=== PATIENT | male | born 1980 | race Caucasian/White ===

== ENCOUNTER → 2020-04-18 09:14 | Outpatient (CLI) | payer OTHER, SELFPAY ==
--- NOTE | 2020-04-18 09:17 | DI.US.S_ITS ---
PROCEDURE: US ABDOMEN COMPLETE INDICATIONS: RETIREMENT HEARTBURN MEDICATION TECHNIQUE: Real-time scanning was performed of the abdominal and retroperitoneal organs, with image documentation. COMPARISON: None. FINDINGS: Liver: The liver demonstrates normal size. The liver demonstrates generalized increased echogenicity. This decreases ultrasound sensitivity for detection of hepatic masses. Gallbladder: No findings of gallstones or sludge are seen. The gallbladder wall is not thickened, measuring 3 mm or less. A 4.6 mm, while can be seen posteriorly. No specific pericholecystic fluid is seen. The sonographic Kelly sign is negative. Biliary ducts: Intrahepatic bile ducts are non-dilated. Extrahepatic bile duct caliber measures 4 mm. Normal is 6-7 mm or less in diameter, or 10 mm or less post-cholecystectomy. Pancreas: Visualized portions of the pancreas are sonographically normal. Spleen: Spleen is normal in size and homogeneous in echotexture. Kidneys: Kidneys are normal in size and echotexture. Right kidney measures 9.8 cm long; left kidney measures 11.2 cm long. No hydronephrosis or nephrolithiasis. No solid masses. Aorta: Visualized aorta is normal in caliber at less than 3 cm. Iliacs: Proximal common iliac arteries are normal in caliber at less than 2.5 cm. IVC: Intrahepatic inferior vena cava is patent. Miscellaneous: No free abdominal fluid. IMPRESSION: No imaging explanation is found for this patient's presenting symptoms. The gallbladder demonstrates a normal sonographic appearance. No biliary dilatation is seen. 4.6 mm gallbladder wall polyp incidentally noted. Dictated by: Nick Ventura M.D. on 04/18/2020 at 9:22 Approved by: Nick Ventura M.D. on 04/18/2020 at 9:23
[2020-04-18 10:40] LABS: Add Manual Diff / Slide Review NO; Basophils Absolute Auto 0 /uL (0-100); Basophils Percent Auto 0.9 % (0-2); Eosinophils Absolute Auto 100 /uL (0-450); Eosinophils Percent Auto 2.9 % (2-4); Hematocrit 49.8 % (41-53); Hemoglobin 17.6 g/dL (13.5-17.5); Lymphocytes Absolute Auto 1000 /uL (1100-4500); Lymphocytes Percent Auto 21.8 % (25-40); Mean Corpuscular HGB Conc 35.4 % (30-36); Mean Corpuscular Volume 93.3 fL (80-100); Monocytes Absolute Auto 500 /uL (0-900); Monocytes Percent Auto 11.7 % (3-14); Neutrophils Absolute Auto 2800 /uL (1500-7000); Neutrophils Percent Auto 62.7 % (50-75); Platelet Count 201 X10^3/uL (150-400); Red Blood Cell Count 5.34 X10^6/uL (4.5-5.9); Red Cell Distribution Width 13.5 % (11.6-14.8); White Blood Cell Count 4.5 X10^3/uL (4.5-11.0)
[2020-04-18 11:23] LABS: Alanine Aminotransferase 47 IU/L (<50); Albumin 4.8 g/dL (3.5-5.0); Albumin Globulin Ratio 1.7 (1.0-2.8); Alkaline Phosphatase 46 U/L (38-126); Amylase 50 U/L (30-110); Aspartate Aminotransferase 46 IU/L (17-59); BUN Creatinine Ratio 13.5 (6-22); Blood Urea Nitrogen 14 mg/dL (9-20); Calcium 9.9 mg/dL (8.4-10.2); Carbon Dioxide 28 mmol/L (22-32); Chloride 101 mmol/L (98-107); Estimated Glomerular Filt Rate > 60.0 mL/min (>60); Globulin 2.8 g/dL (1.7-4.1); Glucose 93 mg/dL (70-100); HEMOLYSIS < 15 (0-50); Lipase 31 U/L (23-300); Potassium 4.6 mmol/L (3.4-5.1); Sodium 137 mmol/L (137-145); Total Protein 7.6 g/dL (6.3-8.2)
== END ==
PROVIDERS: Family Provider Family Medicine; PCP Family Medicine; Referring Provider Family Medicine; Visit Provider Family Medicine
DX: R12 Heartburn (principal); K82.4 Cholesterolosis of gallbladder; Z79.899 Other long term (current) drug therapy
CPT/HCPCS: 36415; 76700; 80053; 82150; 83013; 83690; 85025

== ENCOUNTER → 2020-09-15 13:16 | Outpatient (CLI) | payer OTHER, SELFPAY ==
--- NOTE | 2020-09-15 13:19 | DI.RAD.S_ITS ---
PROCEDURE: XR CERVICAL SPINE 2V OR 3V INDICATIONS: Neck pain TECHNIQUE: 3 view(s) of the cervical spine were acquired. COMPARISON: None. FINDINGS: Bones: No fractures or dislocations to the T1 level. The lateral masses of C1 appear intact on the odontoid view. No suspicious bony lesions. Note is made of a [id number] degree of degenerative disc height reduction at C5-6 without subluxation Soft tissues: No prevertebral soft tissue swelling. IMPRESSION: [id number] degenerative disc disease at C5-6, no trauma found, no subluxation present. Dictated by: Onesimo Rodarte M.D. on 09/15/2020 at 16:24 Approved by: Onesimo Rodarte M.D. on 09/15/2020 at 16:25
== END ==
PROVIDERS: Family Provider Family Medicine; PCP Family Medicine; Referring Provider Family Medicine; Visit Provider Family Medicine
DX: M54.2 Cervicalgia (principal)
CPT/HCPCS: 72040

== ENCOUNTER → 2022-03-01 16:57 | Outpatient (CLI) | payer OTHER, SELFPAY ==
[2022-03-01 17:55] LABS: Add Manual Diff / Slide Review NO; Basophils Absolute Auto 100 /uL (0-100); Basophils Percent Auto 0.9 % (0-2); Eosinophils Absolute Auto 200 /uL (0-450); Eosinophils Percent Auto 2.7 % (2-4); Hematocrit 50.6 % (41-53); Hemoglobin 17.7 g/dL (13.5-17.5); Lymphocytes Absolute Auto 1600 /uL (1100-4500); Mean Corpuscular Hemoglobin 32.3 PG (26-34); Mean Corpuscular Volume 92.1 fL (80-100); Monocytes Absolute Auto 800 /uL (0-900); Monocytes Percent Auto 11.5 % (3-14); Neutrophils Absolute Auto 4400 /uL (1500-7000); Neutrophils Percent Auto 62.9 % (50-75); Platelet Count 248 X10^3/uL (150-400); Red Blood Cell Count 5.49 X10^6/uL (4.5-5.9); Red Cell Distribution Width 13.8 % (11.6-14.8); White Blood Cell Count 7.1 X10^3/uL (4.5-11.0)
[2022-03-01 18:08] LABS: Alanine Aminotransferase 40 IU/L (<50); Albumin 4.9 g/dL (3.5-5.0); Albumin Globulin Ratio 1.8 (1.0-2.8); Alkaline Phosphatase 51 U/L (38-126); Aspartate Aminotransferase 38 IU/L (17-59); BUN Creatinine Ratio 13.2 (6-22); Bilirubin Total 0.4 mg/dL (0.2-1.3); Blood Urea Nitrogen 15 mg/dL (9-20); Calcium 8.9 mg/dL (8.4-10.2); Carbon Dioxide 25 mmol/L (22-32); Chloride 104 mmol/L (98-107); Estimated Glomerular Filt Rate > 60 mL/min (>60); Globulin 2.8 g/dL (1.7-4.1); Glucose 98 mg/dL (70-100); HEMOLYSIS < 15 (0-50); Potassium 3.9 mmol/L (3.4-5.1); Sodium 139 mmol/L (137-145); Total Protein 7.7 g/dL (6.3-8.2)
[2022-03-01 18:28] LABS: Ur Creatinine Normal (Normal); Ur Specific Gravity Normal (Normal); Urine Tetrahydrocannabinol Negative (Negative); Urine pH Normal (Normal)
[2022-03-01 18:29] LABS: UR Morphine/Opiate cutoff 300 Negative (Negative); Urine Amphetamines Positive (Negative); Urine Barbiturates Negative (Negative); Urine Benzodiazepines Negative (Negative); Urine Cocaine Negative (Negative); Urine MDMA Negative (Negative); Urine Methadone Negative (Negative); Urine Methamphetamines Negative (Negative); Urine Oxycodone Negative (Negative); Urine Phencyclidine Negative (Negative); Urine Tricyclic Antidepressant Negative (Negative)
[2022-03-01 18:41] LABS: TSH w/ Reflex to FT4 2.81 uIU/mL (0.47-4.68)
== END ==
PROVIDERS: Family Provider Family Medicine; PCP Internal Medicine; Referring Provider Internal Medicine; Visit Provider Internal Medicine
DX: F90.0 Attention-deficit hyperactivity disorder, predominantly inattentive type (principal); I10 Essential (primary) hypertension
CPT/HCPCS: 36415; 80053; 80305; 84443; 85025

== ENCOUNTER → 2023-06-07 11:28 | Outpatient (CLI) | payer BC, SELFPAY ==
[2023-06-07 13:19] LABS: Alanine Aminotransferase 84 IU/L (<50); Albumin 4.5 g/dL (3.5-5.0); Albumin Globulin Ratio 1.7 (1.0-2.8); Alkaline Phosphatase 43 U/L (38-126); Aspartate Aminotransferase 47 IU/L (17-59); BUN Creatinine Ratio 15.3 (6-22); Bilirubin Total 0.7 mg/dL (0.2-1.3); Blood Urea Nitrogen 15 mg/dL (9-20); Calcium 9.4 mg/dL (8.4-10.2); Carbon Dioxide 33 mmol/L (22-32); Chloride 98 mmol/L (98-107); Estimated Glomerular Filt Rate > 60 mL/min (>60); Globulin 2.7 g/dL (1.7-4.1); Glucose 91 mg/dL (70-100); HEMOLYSIS < 15 (0-50); Potassium 4.2 mmol/L (3.4-5.1); Sodium 137 mmol/L (137-145); Total Protein 7.2 g/dL (6.3-8.2)
[2023-06-07 13:42] LABS: TSH w/ Reflex to FT4 2.58 uIU/mL (0.47-4.68)
== END ==
PROVIDERS: Family Provider Family Medicine; PCP Internal Medicine; Referring Provider Internal Medicine; Visit Provider Internal Medicine
DX: F90.9 Attention-deficit hyperactivity disorder, unspecified type (principal); I10 Essential (primary) hypertension
CPT/HCPCS: 36415; 80053; 84443

== ENCOUNTER 2025-07-24 10:14 | Day surgery (SDC) | payer BC, SELFPAY ==
[2025-07-17 12:17] VITALS: BMI 25.8
[2025-07-24] VITALS (7 sets, daily range): BP systolic 134–164; BP diastolic 92–107; PULSE 92–122; RESP 16–23; TEMP 36.2–36.3; O2SAT 95–99; BMI 25.8
--- NOTE | 2025-07-24 10:30 | SUR.PREOP ---
Request from OR supercharger repair supervisor to request MRI information from pt; pt states he did not get an MRI, was unable to reach anyone to schedule. Notified OR supercharger repair supervisor. Will proceed with admit
[2025-07-24] MEDS: LACTATED RINGERS 1,000 ML 42 ML IV (10:55)
--- NOTE | 2025-07-24 11:13 | PM.PREOP ---
Pre-operative Note COVID-19 COVID-19 status: Not tested Interval Note History & Physical reviewed/Exam performed by Physician: Yes Changes to H&P: No H&P completed within 30 days and has changed as indicated here:: Patient did not get the MRI that I had ordered. We discussed the risks with this including having to extend his incision and potentially needing to bridge a gap with allograft. He understands and wishes to proceed.
--- NOTE | 2025-07-24 11:54 | SUR.OPER ---
Supine on padded OR bed, head on pillow, non operative arm secured on padded arm boards at <90 degrees abduction, operative arm on wide arm padded arm board, legs uncrossed, safety belt at thigh, tape over blanket over lower legs. surgeon in room at time of positioning, all pressure points padded and covered.
[2025-07-24] MEDS: BUPivacaine 0.25% W/ EPI (PF) 30 ML VIAL INJ (12:08)
[2025-07-24] MEDS: ACETAMINOPHEN IV 1,000 MG/100 ML VIAL 400 MG IV (13:12)
[2025-07-24] MEDS: KETOROLAC 30 MG/ML VIAL IV (13:12)
--- NOTE | 2025-07-24 15:02 | P.OP_ITS ---
Operative Date/Time/Diagnoses Date of procedure: 07/24/25 Time of procedure: 11:47 Pre-op diagnosis: Right distal biceps tendon rupture Post-op diagnosis: same Procedure & Clinicians Procedure: Distal distal biceps tendon repair Same procedure(s) as scheduled: Yes Surgeon: Sharlene Rossi Assisted?: Yes Long Chain Beamer: Lary Rodriguez Anesthesia Type: General Operative Notes Findings: see below Closure Type: primary Specimen(s): none sent Applied: none Estimated Blood Loss (mL): 10 Blood products transfused: none Tourniquet time (min): 57 Procedure in detail: Laterality: Right Preoperative diagnosis:?Distal biceps tendon rupture? Procedure performed:?Distal distal biceps tendon repair Postoperative diagnosis:?Same Primary Surgeon: Sharlene Rossi, DO Long Chain Beamer:? Lary Rodriguez PAKatherine Anesthesia: General EBL:?10?ml Tourniquet:?57?minutes @ 200 mmHg Implants:?Arthrex Fiberloop and Arthrex Distal Biceps Button Indication For Surgery:?See preop H&P Operative Findings:? Distal biceps tendon tear with minimal retraction. Procedure in Detail: The patient was met in the pre-operative hold area. Consent was verified and operative extremity was signed. The patient then met with anesthesia and was brought back to the operating room. The patient was placed supine on the operating table. A general anesthetic was administered. The?operative arm was prepped and draped in the usual sterile fashion. A timeout was performed per protocol. All were in agreement and we proceeded. ?The esmarch exsanguinated the limb and the tourniquet was elevated. ? A horizontal incision was 2 cm distal from antecubital fossa.?The forearm was supinated throughout the case.? LABCN was identified and protected throughout the case. ?Dissection was brought down and crossing veins/arteries were tied and ligated. ?The tuberosity was identified and the biceps tendon was found to be ruptured from the tuberosity. ? Xray confirmed the tuberosity and it was then prepared with an elevator, Bovie, and rongeur.? The biceps tendon was then isolated and unhealthy tissue was dissected from the tendon.? I then passed fiberloop through the button.?? The tendon was measured 7 mm.?? Utilizing fluoroscopy I identified the location for our drill hole on the radial tuberosity.? I ensured that my guidewire was aimed ulnarly then able to pass our biceps tendon button through the far cortex and flipped it and ensure that it was against the far cortex.? We then sequentially pulled our sutures docking the biceps tendon within the drill hole.? The tendon remained well reduced and the r epair was strong.? Irrigation was performed. ?The wound was closed with vicryl in the fat and dermal layers, with monocryl in the skin.? Local anesthetic was injected into the surgical site. ?A sterile dressing and splint were applied. ?The patient was awakened and transitioned to the recovery room without issue. A physician's technical administrative assistant was utilized to position the patient for retraction and for closure ? Postoperative Plan: Same day surgery discharge Splint until follow up. Sutures out at 2 weeks Complications: none Post-operative Condition: stable Disposition: PACU
== END 2025-07-24 13:56 | disposition home or self-care (01) ==
PROVIDERS: PCP Internal Medicine; Referring Provider Orthopaedic Surgery; Visit Provider Orthopaedic Surgery
PROC: (CPT 24341; principal; 2025-07-24 11:45)
DX: S46.211A Strain of muscle, fascia and tendon of other parts of biceps, right arm, initial encounter (principal); X50.1XXA Overexertion from prolonged static or awkward postures, initial encounter
CPT/HCPCS: 24342; J0131; J0689; J1100; J1171; J1885; J2250; J2405; J2704; J3010; J7120